=== PATIENT | female | born 1985 | race Caucasian/White ===

== ENCOUNTER → 2019-01-26 | Outpatient (REF) | payer OTHER ==
[2019-01-26 18:16] LABS: HEMATOCRIT 38.3 % (36.0-47.0); HEMOGLOBIN 12.6 g/dl (12.0-15.5); MEAN CORPUSCULAR HEMOGLOBIN 27.8 pg (27.0-33.0); MEAN CORPUSCULAR HGB CONC 32.9 g/dl (32.0-36.5); MEAN CORPUSCULAR VOLUME 84.5 fl (80.0-96.0); PLATELET COUNT, AUTOMATED 373 10^3/uL (150-450); RED BLOOD COUNT 4.53 10^6/uL (4.00-5.40); WHITE BLOOD COUNT 11.6 10^3/uL (4.0-10.0)
[2019-01-26 18:42] LABS: HCG, SERUM QUANTITATIVE 3963 MIU/ML
[2019-01-27 09:09] LABS: RUBELLA IgG QUALITATIVE IMMUNE (IMMUNE)
[2019-01-27 09:39] LABS: HIV 1&2 SCREEN CENTAUR NEGATIVE (NEGATIVE)
[2019-01-27 12:31] LABS: HEPATITIS C VIRUS ABY INDEX 0.1 INDEX (<0.8)
== END ==
LOC: M LAB REF 17:38
PROVIDERS: ATTEND Nurse Practitioner Women's Health
DX: O36.80X0 Pregnancy with inconclusive fetal viability, not applicable or unspecified (principal)

== ENCOUNTER → 2019-04-02 | Outpatient (CLI) | payer OTHER | LOC: M WUC 14:55 | PROVIDERS: ATTEND Nurse Practitioner Women's Health | DX: Z34.82 Encounter for supervision of other normal pregnancy, second trimester (principal); Z3A.00 Weeks of gestation of pregnancy not specified ==

== ENCOUNTER → 2019-05-14 | Outpatient (CLI) | payer OTHER ==
--- NOTE | 2019-05-14 12:25 | REP ---
OB ULTRASOUND: Real-time sonographic evaluation of the gravid uterus performed. There is a single living intrauterine gestation with an estimated gestational age 20 weeks 4 days EDC 09/27/2019. Today's measurements indicate appropriate growth. Biometry and Growth: BPD 45 mm = 19 weeks 3 days, 20th percentile HC 177 mm = 20 weeks 1 day 36th percentile AC 160 mm = 21 weeks 1 day 61st percentile FL 36 mm = 21 weeks 4 days, 74th percentile HC/AC ratio 1.10 within normal range. Estimated weight estimated weight 400 grams, 64th percentile. SEEN/GROSSLY UNREMARKABLE Lateral ventricles Yes Posterior fossa No Upper lip Yes Four-chamber heart No LVOT No RVOT No Stomach Yes Cord insertion Yes Three vessel cord Yes Kidneys Yes Bladder Yes Spine Yes Cervical length: Closed and measures 6.0 cm in length. heart rate: 136 beats per minute. position: Variable. Placenta: Posterior and grade 0 with no previa or abruption. Amniotic fluid: Within normal limits. Electronically Signed by Pacheco Robles MD 05/15/2019 03:17 P
== END ==
LOC: M RAD 10:39
PROVIDERS: ATTEND Nurse Practitioner Women's Health
DX: Z34.82 Encounter for supervision of other normal pregnancy, second trimester (principal)

== ENCOUNTER → 2019-05-28 | Outpatient (REF) | payer OTHER | LOC: M LAB REF 12:34 | PROVIDERS: ATTEND Obstetrics & Gynecology | DX: Z34.82 Encounter for supervision of other normal pregnancy, second trimester (principal) ==

== ENCOUNTER → 2019-06-11 | Outpatient (CLI) | payer OTHER ==
--- NOTE | 2019-06-11 11:50 | REP ---
Obstetric sonography: History: Followup anatomy. Second trimester study. Four-chamber heart outflow tract views and posterior fossa. Comparison sonography May 14, 2019. Findings: Scanning through the gravid uterus demonstrates a viable single intrauterine gestation in a cephalic lie. motion is observed and heart rate is recorded at 140 beats per minute. A posterior fundal grade 1 placenta is seen without evidence of previa or abruption. Amniotic fluid is subjectively normal. Closed cervical length is 3.9 cm. No extrauterine abnormalities observed. There has been appropriate interval growth. No anomaly is seen. The following anatomic structures are identified today and felt to be sonographically unremarkable: cranium, cavum, cerebellum and posterior fossa, face and profile, lungs, four-chamber heart with left and right ventricular outflow tract views, diaphragm, left-sided stomach, abdominal wall cord insertion, three-vessel umbilical cord, kidneys and bladder, upper and lower extremities. spine was less than optimally seen today but was seen previously. Biometry chart: BPD 6.0 cm = 24 weeks 3 days Head circumference 22.4 cm = 24 weeks 3 days Abdominal circumference 19.7 cm = 24 weeks 2 days Femur length 4.5 cm = 25 weeks 0 days Humeral length 4.2 cm = 25 weeks 1 day HC/AC ratio normal 1.14. Cephalic index normal 0.74 . Estimated weight 711 grams, 1 pound 9 ounces, 43rd percentile for 24 weeks 4 days. Impression: Viable single intrauterine gestation at 24 weeks 5 days by today's composite sonographic criteria. Expected gestational age estimate based on prior sonography is 24 weeks 6 days. YARI by prior sonography September 25, 2019. anatomic survey is felt to be complete in conjunction with the prior study. Electronically Signed by Beto Escalante MD 06/11/2019 12:16 P
== END ==
LOC: M RAD 09:35
PROVIDERS: ATTEND Obstetrics & Gynecology
DX: Z34.82 Encounter for supervision of other normal pregnancy, second trimester (principal); Z3A.24 24 weeks gestation of pregnancy

== ENCOUNTER → 2019-07-08 | Outpatient (REF) | payer OTHER, MEDICAID ==
[2019-07-08 14:34] LABS: HEMATOCRIT 34.2 % (36.0-47.0); HEMOGLOBIN 11.2 g/dl (12.0-15.5); MEAN CORPUSCULAR HEMOGLOBIN 27.4 pg (27.0-33.0); MEAN CORPUSCULAR HGB CONC 32.7 g/dl (32.0-36.5); MEAN CORPUSCULAR VOLUME 83.6 fl (80.0-96.0); PLATELET COUNT, AUTOMATED 289 10^3/uL (150-450); RED BLOOD COUNT 4.09 10^6/uL (4.00-5.40); WHITE BLOOD COUNT 12.5 10^3/uL (4.0-10.0)
== END ==
LOC: M PLALAB 12:28
PROVIDERS: ATTEND Advanced Practice Midwife
DX: O99.212 Obesity complicating pregnancy, second trimester (principal)

== ENCOUNTER → 2019-08-31 | Outpatient (REF) | payer OTHER, MEDICAID | LOC: M SFHCWAGY 16:50 | PROVIDERS: ATTEND Obstetrics & Gynecology | DX: Z34.93 Encounter for supervision of normal pregnancy, unspecified, third trimester (principal) ==

== ENCOUNTER 2019-09-30 01:59 | Inpatient (IN) | payer MEDICAID, OTHER ==
[2019-09-30] VITALS (25 sets, daily range): BP systolic 92–185; BP diastolic 45–97
[~2019-09-30] VITALS: Ht 175.3 cm; Wt 142.1 kg
[2019-09-30] MEDS ORDERED: FAMO40TA3 PO (02:44)
[2019-09-30] MEDS ORDERED: TUMS500C PO (02:44)
[2019-09-30] MEDS ORDERED: PRENTAB9 PO (02:44)
[2019-09-30] MEDS ORDERED: LACTATED RINGER'S 1000 ML IV STA (02:58)
[2019-09-30] MEDS ORDERED: LR 1,000 ML IV SCH (02:58)
[2019-09-30] MEDS ORDERED: PENICILLIN G POTASSIUM IV 5 MU in D5W MINI-BAG PLUS 100 ML IV STA (02:58)
[2019-09-30] MEDS ORDERED: FENTANYL 2MCG/ML ROPIVACAINE 0.2% IN 0.9% NACL 100ML IVBAG As Ordered ONE (03:45)
[2019-09-30 03:47] LABS: HEMATOCRIT 34.4 % (36.0-47.0); HEMOGLOBIN 11.7 g/dl (12.0-15.5); MEAN CORPUSCULAR HEMOGLOBIN 27.7 pg (27.0-33.0); MEAN CORPUSCULAR VOLUME 81.5 fl (80.0-96.0); PLATELET COUNT, AUTOMATED 288 10^3/uL (150-450); RED BLOOD COUNT 4.22 10^6/uL (4.00-5.40); WHITE BLOOD COUNT 13.3 10^3/uL (4.0-10.0)
[2019-09-30 04:13] LABS: ALT/SGPT 18 U/L (12-78); BILIRUBIN,TOTAL 0.7 MG/DL (0.2-1.0); CREATININE FOR GFR 0.67 MG/DL (0.55-1.30); GLOMERULAR FILTRATION RATE > 60.0 (>60); LDH LACTATE DEHYDROGENASE 156 U/L (84-246); URIC ACID 5.5 MG/DL (2.6-6.0)
[2019-09-30] MEDS ORDERED: diphenhydrAMINE 50MG/ML VIAL (J1200) IV PRN (05:00)
[2019-09-30] MEDS ORDERED: EPIDURAL/PCA KEYS XX PRN (05:00)
[2019-09-30] MEDS ORDERED: FENTANYL/ROPIVACAINE/NACL BAG 100 ML EPIDURAL SCH (05:00)
[2019-09-30] MEDS ORDERED: REFRIGERATOR IV KEYS XX PRN (05:00)
[2019-09-30] MEDS ORDERED: LACTATED RINGER'S 1000 ML IV PRN (05:00)
[2019-09-30] MEDS ORDERED: ePHEDrine SULFATE 25 MG/5 ML(5MG/ML) SYRINGE IV PRN (05:00)
[2019-09-30] MEDS ORDERED: EPIDURAL COMMENT XX SCH (05:00)
[2019-09-30] MEDS ORDERED: NALOXONE INJ 0.4MG/1ML VIAL (J2310 PER 1MG) IV PRN (05:00)
[2019-09-30] MEDS ORDERED: ONDANSETRON 4MG/2ML VIAL IV PRN (05:00)
[2019-09-30] MEDS ORDERED: ePHEDrine SULFATE 25 MG/5 ML(5MG/ML) SYRINGE As Ordered ONE (05:47)
[2019-09-30] MEDS ORDERED: OXYTOCIN 30 UNITS IN 0.9% NaCl 500ML IV BAG (J2590) As Ordered ONE (06:14)
[2019-09-30 06:38] LABS: CREATININE,RANDOM URINE 74.4 MG/DL; TOTAL PROTEIN,RANDOM URINE 19.5 MG/DL (0.0-12.0)
[2019-09-30] MEDS ORDERED: OXYTOCIN DRIP 30 UNITS in IV 1 EA IV SCH (07:27)
[2019-09-30] MEDS ORDERED: IBUPROFEN 600 MG TAB PO PRN (07:30)
[2019-09-30] MEDS ORDERED: DOCUSATE SODIUM 100 MG CAP PO PRN (07:30)
[2019-09-30] MEDS ORDERED: DIBUCAINE 1% OINTMENT 30GM TOP PRN (07:30)
[2019-09-30] MEDS ORDERED: ACETAMINOPHEN TAB 650MG DOSE (2X325MG) PO PRN (07:30)
[2019-09-30] MEDS ORDERED: MEASLES,MUMPS,RUBELLA VACCINE INJ (MMR-II) (90707) SC SCH (07:30)
[2019-09-30] MEDS ORDERED: ANUSOL HC CREAM 30GM TOP PRN (07:30)
[2019-09-30] MEDS ORDERED: RHOGAM 300 MCG (1500 IU) INJ (J2790) IM SCH (07:30)
[2019-09-30] MEDS ORDERED: ACETAMINOPHEN 500 MG TAB PO PRN (07:30)
[2019-09-30] MEDS ORDERED: PENICILLIN G POTASSIUM IV 2.5 MU in IV 1 EA IV SCH (07:45)
[2019-09-30] MEDS: PRENATAL VITAMINS CHEWABLE TABLET PO SCH (08:08)
--- NOTE | 2019-09-30 09:12 | HPE ---
DATE OF ADMISSION: 09/30/2019 Brianna is a 33-year-old, 3, para 1-0-1-1, estimated date of confinement (EDC) of 09/26/2019 based on last menstrual period, confirmed by first-trimester ultrasound. She is 40-5/7 weeks' gestation today. She presents to labor and delivery with report of small gush of fluid at approximately 12:45 and contractions about every 5 minutes. She does report some pink bloody show. The fetus has been active. Her care was initiated at [facility] with a transfer of care to [facility] at 27 weeks' gestation. Her course complicated by group B streptococcus (GBS) positive and obesity. OBSTETRICAL HISTORY: August, 40 weeks' gestation, 7 pound 8 ounce female, spontaneous vaginal delivery. Second , missed . OBSTETRIC LABORATORIES: O+, antibody screen negative, rubella immune. Urine culture positive GBS. HIV negative, hepatitis C nonreactive, gonorrhea and chlamydia negative. Cystic fibrosis carrier screening negative. Panorama low risk for aneuploidy. Female fetus. SMA carrier. is a negative for carrier, fragile X carrier. GDS 103. PAST MEDICAL HISTORY: Obesity. SURGERIES: Tonsillectomy, wisdom tooth extraction, elective termination of . FAMILY HISTORY: Noncontributory. SOCIAL HISTORY: The patient is single with a long-term partner. She is a nonsmoker. She denies alcohol or drug use and no history of any sexually-transmitted infections. ALLERGIES: No known drug allergies. CURRENT MEDICATIONS: - vitamin OBJECTIVE: Temperature 98.9, pulse 102, respirations 18, blood pressure (BP) is 167/83. She is alert and oriented times three. She does appear uncomfortable. She has deep breathing and concentrating with her contractions. heart rate is 135 with moderate variability, positive accelerations, negative decelerations. Contractions are difficult to trace due to body habitus. Sterile speculum examination: Negative nitrazine. Negative pooling. Negative ferning. Positive pink bloody show. On sterile vaginal examination, 5 cm dilated, 80% effaced, minus one station. Abdomen is gravid, cephalic presentation. Estimated weight 8 to 8-1/2 pounds. ASSESSMENT: Intrauterine at 40-5/7 weeks. heart rate category one. Active labor at term. PLAN: Admit the patient to labor and delivery. Intravenous (IV) fluid bolus. The patient is requesting an epidural. Will start IV antibiotics for GBS prophylaxis as soon as possible. I do anticipate labor progress and a spontaneous vaginal delivery. I have added a preeclamptic profile and a spot urine to her routine laboratory work, as well as a clear-liquid diet. MTDD
--- NOTE | 2019-09-30 09:47 | DN ---
DATE OF DELIVERY: 09/30/2019 DELIVERY NOTE: Brianna is a 3, para 2-0-1-2, who was admitted to labor and delivery in active labor. She utilized an epidural for her labor coping. She reached complete dilation at 0504 hours. She pushed to a normal spontaneous vaginal delivery of a live female in left occiput anterior (GOLDEN) position with restitution to left occiput transverse (LOT) position at 0617 hours. There was no nuchal cord. The shoulders delivered with gentle downward traction and the corpus immediately followed. The female was placed on the maternal abdomen crying and active. Mouth and nares were bulb suctioned. Cord was clamped times two once pulsations ceased, cut by the father of the baby under my direction. Cord blood was obtained. Spontaneous expulsion of an intact placenta with three-vessel cord. Schultze mechanism was at 0628 hours. Uterine hemostasis achieved with IV Pitocin rapid infusion, uterine fundal massage. Estimated blood loss 400 mL. Perineum and vagina inspected, noted to have a first-degree midline laceration. The laceration was repaired with #3-0 Vicryl Rapide in the usual fashion. [place] female weighed 4430 grams (9 pounds 12 ounces). score were 9 and 9. Mom is going to breast feed her daughter, and the family have named her Mj. At the close of delivery, lap counts, needle counts and instrument counts were correct and verified.
[2019-09-30] MEDS ORDERED: CALCIUM CARBONATE 500 MG CHEW U/D PO ONE (12:15)
[2019-09-30] MEDS ORDERED: CALCIUM CARBONATE 500 MG CHEW U/D PO SCH (12:30)
[2019-09-30] MEDS: CALCIUM CARBONATE 500 MG CHEW U/D PO PRN ×3 (12:34→22:27)
[2019-09-30] MEDS: IBUPROFEN 800 MG TAB PO PRN (17:25)
[2019-10-01] MEDS: IBUPROFEN 800 MG TAB PO PRN (02:15)
[2019-10-01 05:54] VITALS: BP 140/84
[2019-10-01] MEDS: PRENATAL VITAMINS CHEWABLE TABLET PO SCH (08:01)
== END 2019-10-01 13:57 | disposition home or self-care (01) | DRG 560 ==
LOC: M LDO 01:59 → M LDI 02:54 → M OBS 09:02
PROVIDERS: ADMIT Advanced Practice Midwife; ATTEND Advanced Practice Midwife
PROC: 10E0XZZ Delivery of Products of Conception, External Approach (ICD-10-PCS; principal; 2019-09-30)
PROC: 0HQ9XZZ Repair Perineum Skin, External Approach (ICD-10-PCS; 2019-09-30)
DX: O48.0 Post-term pregnancy (principal); E66.9 Obesity, unspecified; Z37.0 Single live birth; Z3A.40 40 weeks gestation of pregnancy; O99.824 Streptococcus B carrier state complicating childbirth; O99.214 Obesity complicating childbirth; O70.0 First degree perineal laceration during delivery